=== PATIENT | male | born 1960 | race Caucasian/White ===

== ENCOUNTER 2019-09-17 16:30 | Emergency (ER) | payer BC, OTHER ==
[2019-09-17 16:53] LABS: CHLORIDE,CL 105 mmol/L (98-107); SODIUM,NA 139 mmol/L (136-145)
[2019-09-17] MEDS: Ondansetron 4 MG/2 ML SDV IVPUSH ONE (17:30)
[2019-09-17] MEDS: Iopamidol 612 MG/ML 100 ML Bottle IVPUSH ONE (17:35)
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
== END 2019-09-17 18:45 | disposition home or self-care (01) ==
LOC: LL.ED 16:30
DX: S20.212A Contusion of left front wall of thorax, initial encounter (principal); M19.90 Unspecified osteoarthritis, unspecified site; V43.52XA Car driver injured in collision with other type car in traffic accident, initial encounter; Y92.410 Unspecified street and highway as the place of occurrence of the external cause
CPT/HCPCS: 36415; 71045; 71260; 72170; 74177; 80053; 85025; 96374; 96375; 99284-25; J2270; J2405; Q9967

== ENCOUNTER 2021-04-16 11:13 | Day surgery (SDC) | payer BC, OTHER ==
[~2021-04-16 11:13] MED LIST: Lactated Ringers 1,000 ML IV SCH; Propofol 200 MG/20 ML SDV ONE; Sodium Chloride 0.9% 10 ML Syringe FLUSH PRN
--- NOTE | 2021-04-16 11:34 | PCM.HPR ---
H & P Addendum review - H & P Addendum Review Date of Original H & P: 03/30/21 Date Reviewed: 04/16/21 Time Reviewed: 11:34 Patient was Examined: No Changes
[2021-04-16] MEDS ORDERED: Propofol 200 MG/20 ML SDV ONE ×2 (11:37→12:09)
--- NOTE | 2021-04-16 12:06 | PCM.OPNOTE ---
- General Post-Op/Procedure Note Date of Surgery/Procedure: 04/16/21 Operative Procedure(s): Colonoscopy Findings: normal Pre Op Diagnosis: FH polyps Post-Op Diagnosis: Normal Anesthesia Technique: MAC Primary Surgeon: Miller Pitts Complications: None Condition: Good
--- NOTE | 2021-04-16 14:05 | OR ---
Date of Procedure: 04/16/2021 PREOPERATIVE DIAGNOSIS: Family history of colon polyps. POSTOPERATIVE DIAGNOSIS: Normal colonoscopy. PROCEDURE: Colonoscopy. ANESTHESIA: IV sedation. PROCEDURE IN DETAIL: The patient was brought to the procedure room where he was placed on his left side and IV sedation administered. Digital rectal exam was performed which was normal. Colonoscope was inserted and advanced to the level of the cecum without difficulty. Cecal position was confirmed by identifying the appendiceal lumen and ileocecal valve. Prep was good and surfaces were well visualized. Upon withdrawing the scope, the ascending, transverse, and descending colon were normal in appearance. Sigmoid colon and rectum were normal. Retroflexion was normal. Air was removed and the scope withdrawn. Patient tolerated the procedure well and returned to recovery in stable condition. Recommend colon screening again in 5 years. VIKKI SANCHEZ MD /[id number]
[2021-04-16 14:37] VITALS: BP 136/87; PULSE 88
== END 2021-04-16 13:11 | disposition home or self-care (01) ==
LOC: LL.SDS 11:13
PROVIDERS: ATTEND Surgery
DX: Z12.11 Encounter for screening for malignant neoplasm of colon (principal); K21.9 Gastro-esophageal reflux disease without esophagitis; R74.01 Elevation of levels of liver transaminase levels; Z83.71 Family history of colonic polyps; Z79.899 Other long term (current) drug therapy
CPT/HCPCS: 00812; J2704

== ENCOUNTER 2022-08-12 13:44 | Emergency (ER) | payer BC, OTHER ==
[2022-08-12 14:36] VITALS: BP 128/94; PULSE 80
== END 2022-08-12 16:03 | disposition home or self-care (01) ==
LOC: SUPCPDRO 13:44 → LL.ED 13:44
DX: S49.92XA Unspecified injury of left shoulder and upper arm, initial encounter (principal); K21.9 Gastro-esophageal reflux disease without esophagitis; Z79.899 Other long term (current) drug therapy; W18.30XA Fall on same level, unspecified, initial encounter
CPT/HCPCS: 73030-LT; 99283